=== PATIENT | male | born 1950 | race Hispanic/Latino ===

== ENCOUNTER 2020-08-30 12:51 | Emergency (ER) | payer MEDICARE ==
--- NOTE | 2020-08-30 13:12 | Event Note ---
ED Screening Note ED Screening Note: Patient sent by [facility] He went in today for INR check, his INR read as greater than 8 by fingerstick Patient is on 5 mg of Coumadin daily He states he saw a small amount of blood when he blew his nose but denies any's epistaxis He denies any other bleeding or hematochezia, melena, hematemesis He denies any symptoms and is currently pain-free This initial assessment/diagnostic orders/clinical plan/treatment(s) is/are subject to change based on patients health status, clinical progression and re- assessment by fellow clinical providers in the ED. Further treatment and workup at subsequent clinical providers discretion. Patient/guardian urged not to elope from the ED as their condition may be serious if not clinically assessed and managed. Initial orders include: Labs
[2020-08-30 15:28] LABS: Basophils # (Auto) 0.1 K/mm3 (0.0-0.1); Eosinophils # (Auto) 0.3 K/mm3 (0.0-0.4); Eosinophils % (Auto) 3.7 % (0.0-4.3); Lymphocytes # (Auto) 2.6 K/mm3 (1.2-5.4); Lymphocytes % (Auto) 34.7 % (13.4-35.0); Monocytes # (Auto) 0.9 K/mm3 (0.0-0.8); Monocytes % (Auto) 11.3 % (0.0-7.3)
[2020-08-30 15:37] LABS: Mean Corpuscular HGB Conc 34 % (32-34); Mean Corpuscular Volume 92 fl (84-94); Platelet Count 325 K/mm3 (140-440); Red Blood Count 5.11 M/mm3 (3.65-5.03)
[2020-08-30 16:08] LABS: INR 7.19 (0.87-1.13); Partial Thromboplastin Time 71.2 Sec. (24.2-36.6)
[2020-08-30 16:35] LABS: Alanine Aminotransferase 20 units/L (7-56); Albumin 4.2 g/dL (3.9-5); BUN/Creatinine Ratio 23; Blood Urea Nitrogen 25 mg/dL (9-20); Calcium 9.8 mg/dL (8.4-10.2); Hemolysis Index 9
--- NOTE | 2020-08-30 18:06 | Emergency Department Report ---
ED General Adult HPI - General Chief complaint: Medical Clearance Stated complaint: my doctor sent me in PUI?: No Time Seen by Provider: 08/30/20 13:11 Source: patient, RN notes reviewed Mode of arrival: Ambulatory Limitations: No Limitations - History of Present Illness Initial comments: The patient was evaluated in the emergency department for symptoms described in the history of present illness. He/she was evaluated in the context of the global COVID-19 pandemic, which necessitated consideration that the patient might be at risk for infection with the virus that causes COVID-19. Institutional protocols and algorithms that pertain to the evaluation of patients at risk for COVID-19 are in a state of rapid change based on information released by regulatory bodies including the CDC and federal and state organizations. These policies and algorithms were followed during the patient's care in the emergency department. Please note that these policies, procedures and recommendations changed on a rapid basis. Cardiology: [facility] cardiology This is a 70-year-old gentleman. He has a current history of atrial fibrillation, and is currently on anticoagulation He was previously on Eliquis, but had to change it a few weeks ago, secondary to it being too expensive. He is thus maintained on Coumadin/warfarin. He takes 5 mg daily. Patient reports has been taking his Coumadin/warfarin on a daily basis. He reports that on a previous INR check, his INR was at an acceptable level. However, he went in today for an INR check, and was found to be 8, and he was thus referred to the emergency room. The patient denies headache, neck pain, chest pain, abdominal pain, shortness of breath, hematemesis and bright red blood per rectum. He denies hematuria. He reports that a few days ago, he had some bloody nasal discharge, which is now resolved. He also reports that over the weekend, he took some Coricidin. He also reports that he is recently discontinued melatonin and saw palmetto consumption. He has chronic paralumbar back pain, which has been present for 10 to 11 months. He has chronic left-sided arm pain, which has been present for a few months. -: month(s) Location: back, left, upper extremity Quality: aching Consistency: intermittent Improves with: rest Worsens with: movement - Related Data Allergies Allergy/AdvReac Type Severity Reaction Status Date / Time No Known Allergies Allergy Unverified 08/30/20 13:09 ED Review of Systems ROS: Stated complaint: NOSE BLEED/REFERRED BY Other details as noted in HPI Constitutional: denies: fever Eyes: denies: eye discharge, vision change ENT: other (Nasal bleeding, now resolved) Respiratory: denies: shortness of breath Gastrointestinal: denies: nausea, vomiting, hematemesis, melena, hematochezia Genitourinary: denies: dysuria Musculoskeletal: back pain, arthralgia, myalgia Neurological: denies: weakness Hematological/Lymphatic: denies: easy bleeding ED Past Medical Hx - Past Medical History Previous Medical History?: Yes Additional medical history: A fib, - Surgical History Past Surgical History?: No ED Physical Exam - General Limitations: No Limitations General appearance: alert, in no apparent distress - Head Head exam: Present: atraumatic, normocephalic - Eye Eye exam: Present: normal appearance, EOMI. Absent: nystagmus - ENT ENT exam: Present: normal exam, normal orophraynx, mucous membranes moist, normal external ear exam, other (No obvious bleeding noted in the nasopharynx) - Neck Neck exam: Present: normal inspection - Respiratory Respiratory exam: Present: normal lung sounds bilaterally. Absent: respiratory distress, wheezes, rales, rhonchi, stridor, decreased breath sounds - Cardiovascular Cardiovascular Exam: Present: regular rate, irregular rhythm, normal heart sounds. Absent: bradycardia, tachycardia, systolic murmur, diastolic murmur, rubs, gallop - GI/Abdominal GI/Abdominal exam: Present: soft. Absent: distended, tenderness, guarding, rebound, rigid, pulsatile mass - Rectal Rectal exam: Present: deferred - Extremities Exam Extremities exam: Present: normal inspection, full ROM, other (2+ pulses noted in the bilateral upper and lower extremities. There is no palpable cord. negative Homans sign. Muscular compartments are soft. The pelvis is stable.). Absent: pedal edema, calf tenderness - Back Exam Back exam: Present: normal inspection, full ROM. Absent: tenderness, CVA tenderness (R), CVA tenderness (L), paraspinal tenderness, vertebral tenderness - Neurological Exam Neurological exam: Present: alert, normal gait, other (No facial droop. Tongue midline. Extraocular movements intact bilaterally. Facial sensation intact to light touch in V1, V2, V3 distribution bilaterally. 5 and a 5 strength in 4 extremities. Sensation intact to light touch in 4 extremities.) - Psychiatric Psychiatric exam: Present: anxious - Skin Skin exam: Present: warm, dry, intact, normal color. Absent: rash ED Course Vital Signs 08/30/20 13:11 Temperature 98.1 F Pulse Rate 69 Respiratory 18 Rate Blood Pressure 139/72 [Right] O2 Sat by Pulse 100 Oximetry ED Medical Decision Making - Lab Data Result diagrams: 08/30/20 14:31 08/30/20 14:31 Vital Signs 08/30/20 13:11 Temperature 98.1 F Pulse Rate 69 Respiratory 18 Rate Blood Pressure 139/72 [Right] O2 Sat by Pulse 100 Oximetry Lab Results 08/30/20 08/30/20 08/30/20 Range/Units 14:31 14:31 14:31 WBC 7.6 (4.5-11.0) K/mm3 RBC 5.11 H (3.65-5.03) M/mm3 Hgb 16.0 H (11.8-15.2) gm/dl Hct 47.0 H (35.5-45.6) % MCV 92 (84-94) fl MCH 32 (28-32) pg MCHC 34 (32-34) % RDW 14.0 (13.2-15.2) % Plt Count 325 (140-440) K/mm3 Lymph % (Auto) 34.7 (13.4-35.0) % [place] % (Auto) 11.3 H (0.0-7.3) % Eos % (Auto) 3.7 (0.0-4.3) % Baso % (Auto) 1.0 (0.0-1.8) % Lymph # (Auto) 2.6 (1.2-5.4) K/mm3 [place] # (Auto) 0.9 H (0.0-0.8) K/mm3 Eos # (Auto) 0.3 (0.0-0.4) K/mm3 Baso # (Auto) 0.1 (0.0-0.1) K/mm3 Seg Neutrophils % 49.3 (40.0-70.0) % Seg Neutrophils # 3.8 (1.8-7.7) K/mm3 PT 63.0 H (12.2-14.9) Sec. INR 7.19 H* (0.87-1.13) APTT 71.2 H* (24.2-36.6) Sec. Sodium 139 (137-145) mmol/L Potassium 4.6 (3.6-5.0) mmol/L Chloride 104.0 (98-107) mmol/L Carbon Dioxide 28 (22-30) mmol/L Anion Gap 12 mmol/L BUN 25 H (9-20) mg/dL Creatinine 1.1 (0.8-1.3) mg/dL Estimated GFR > 60 ml/min BUN/Creatinine Ratio 23 % Glucose 121 H (75-100) mg/dL Calcium 9.8 (8.4-10.2) mg/dL Total Bilirubin 0.40 (0.1-1.2) mg/dL AST 25 (5-40) units/L ALT 20 (7-56) units/L Alkaline Phosphatase 59 (35-129) units/L Total Protein 7.0 (6.3-8.2) g/dL Albumin 4.2 (3.9-5) g/dL Albumin/Globulin Ratio 1.5 % - Medical Decision Making Differential diagnosis, including but not limited to: Elevated INR, medication interactions, nasal bleeding, now resolved, general medical exam Assessment and plan: 70-year-old gentleman with supratherapeutic INR. He denies acute injuries and acute complaints at this time. He reports no dietary or lifestyle indiscretions, but also reports taking Coricidin over the weekend. This is for chronic nontraumatic paralumbar back pain, and chronic nontraumatic left upper extremity pain. He has full range of motion in the bilateral upper and lower extremities. He has no pulsatile abdominal mass, and his back pain has been present for months. AAA, retroperitoneal hematoma quite unlikely. No active nasal bleeding at this time. Oral pharyngeal exam unremarkable. Patient counseled to not take Coricidin, saw palmetto, or melatonin. Patient may continue Flonase, and he will hold Coumadin/warfarin for the next 48 hours. Follow-up with either primary care doctor, emergency department, or sand conditioner in 48 hours for repeat INR check. Given that he does not appear to be actively bleeding at this time, do not see indication for reversal agent. As a courtesy, I reached out to covering cardiology in his group, Dr. Donahue, or we discussed the patient's history, physical, and pertinent laboratory studies. Covering sand conditioner is in agreement. Patient suitable for discharge at this point time, return precautions are re viewed Critical care attestation.: If time is entered above; I have spent that time in minutes in the direct care of this critically ill patient, excluding procedure time. ED Disposition Clinical Impression: Elevated INR, History of epistaxis Disposition: TO HOME OR SELFCARE Is pt being admited?: No Does the pt Need Aspirin: No Condition: Good Instructions: What You Need to Know About Warfarin Additional Instructions: Please do not take Coumadin/warfarin for the next 48 hours. Patient stated that he last took Coumadin/warfarin on Saturday the , and he should follow-up with either primary care, cardiology, or return to the emergency room on , September 01, for repeat INR check. Patient may continue Flonase as directed for intermittent nasal bleeding. Pat ient may take [id number] Tylenol/acetaminophen as needed for back pain, and upper extremity musculoskeletal arthritic pain. If patient has nasal bleeding again, he should hold direct pressure over his nostrils, with both fingers, tightly, for at least 15 to 20 minutes. Coricidin, melatonin, saw palmetto may all increase in prolonged INR. Therefore, the patient should not take any of his medications. Please return to the emergency room right away with new pain, worsened pain, migration of pain, projectile vomiting, change in mental status, confusion, inability to tolerate liquid feeds, new, worsened or different symptoms not present on the initial emergency room evaluation, persistent bleeding, or any new, worsened or different symptoms not present on the initial emergency room ev aluation. Referrals: FER FELIX MD [Primary Care Provider] - 3-5 Days MARIANELA MCGUIRE MD [Staff Physician] - 3-5 Days
[2020-08-30 19:51] VITALS: BP 129/69
== END 2020-08-30 19:55 | disposition home or self-care (01) ==
LOC: ED 12:51
DX: R04.0 Epistaxis (principal); R79.1 Abnormal coagulation profile
CPT/HCPCS: 36415; 80053; 85025; 85610; 85730; 99283